=== PATIENT | male | born 1980 | race Caucasian/White ===

== ENCOUNTER 2020-10-12 01:01 | Emergency (ER) | payer OTHER, MEDICAID ==
[~2020-10-12] VITALS: Ht 205.7 cm; Wt 81.0 kg
--- NOTE | 2020-10-12 02:11 | NUR ---
pt now more calm, able to answer orientation questions correctly, asking to go home. md aware, states pt will dc soon. pt able to void into urinal x2, still complaining of wanting a condom cath. pt informed that since he can void freely there isnt an indication for a condom cath at this time. pt verbaliZes understanding and agreement with plan of care. pt given some po fluids, verbalizes appreciation for cares and concern.
[2020-10-12 02:46] VITALS: BP 150/78
== END 2020-10-12 02:48 | disposition home or self-care (01) ==
LOC: ED 02:42
DX: R06.00 Dyspnea, unspecified (principal); T40.1X1A Poisoning by heroin, accidental (unintentional), initial encounter; Y92.89 Other specified places as the place of occurrence of the external cause
CPT/HCPCS: 71045; 93005; 99283